=== PATIENT | female | born 1950 | race Caucasian/White ===

== ENCOUNTER 2020-09-15 09:08 | Inpatient (IN) | payer MEDICARE, OTHER ==
[~2020-09-15] VITALS: Ht 167.6 cm; Wt 68.0 kg
[~2020-09-15 09:08] MED LIST: Cleocin HCl300 MG PO; MECL25 PO
[2020-09-15] MEDS ORDERED: EUTHYROX50 MC1 PO (09:33)
[2020-09-15 09:54] LABS: Hematocrit 39.8 % (33.0-51.0); Hemoglobin 13.5 g/dL (11.5-16.0); Mean Corpuscular HGB 30.6 pg (26.0-34.0); Mean Corpuscular HGB Conc 33.9 g/dL (31.5-36.5); Mean Corpuscular Volume 90 fL (80-100); Mean Platelet Volume 9.3 fL (9.1-12.4); Platelet Count 302 K/mm3 (150-400); RDW Coefficient Variation 12.3 % (11.7-14.2); Red Blood Cell Count 4.41 M/mm3 (3.80-5.20); White Blood Cell Count 6.23 K/mm3 (4.00-11.30)
[2020-09-15 10:05] LABS: Alanine Aminotransfer (ALT/SGP 37 U/L (12-78); Albumin, Blood 2.8 g/dL (3.4-5.0); Albumin/Globulin Ratio 0.7 (0.8-1.8); Alk Phos 65 U/L (50-136); Anion Gap 8 mmol/L (6-16); Aspartate Aminotrans (AST/SGOT 54 U/L (12-37); Bilirubin, Total 0.6 mg/dL (0.1-1.0); Blood Urea Nitrogen 10 mg/dL (8-24); Bun/Creatinine Ratio 21.1 (12.0-20.0); CO2, Blood 24 mmol/L (21-32); Calcium, Blood 8.2 mg/dL (8.5-10.1); Chloride, Blood 101 mmol/L (98-108); Creatinine, Blood 0.47 mg/dL (0.40-1.00); Glomerular Filtration Rate >60 (60-); Glucose, Blood 110 mg/dL (70-99); Potassium, Blood 3.3 mmol/L (3.5-5.5); Sodium, Blood 133 mmol/L (136-145); Total Protein, Blood 6.8 g/dL (6.4-8.2)
[2020-09-15 10:12] LABS: BAND PERCENT MAN 4 % (0-8); BASOPHILS ABSOLUTE MAN 0.12 K/mm3 (0.00-0.23); BASOPHILS PERCENT MAN 2 % (0-2); EOSINOPHILS PERCENT MAN 0 % (0-6); LYMPHOCYTES ABSOLUTE MAN 1.18 K/mm3 (0.84-5.20); LYMPHOCYTES PERCENT MAN 19 % (21-46); MONOCYTES ABSOLUTE MAN 0.24 K/mm3 (0.16-1.47); MONOCYTES PERCENT MAN 4 % (4-13); NEUTROPHILS ABSOLUTE MAN 4.67 K/mm3 (1.96-9.15); SEG NEUTROPHILS PERCENT MAN 71 % (41-73); TOTAL CELLS COUNTED 100
--- NOTE | 2020-09-15 18:00 | NUR ---
ASSUMED CARE: PT ARRIVED FROM ED WITH 2L O2 IN PLACE. PT STATES SHE DOES NOT NORMALLY WEAR OXYGEN AT HOME BUT FEELS MUCH BETTER THAN SHE DID AT HOME DUE TO MEDS AND HYDRATION AND O2 THERAPY. ASSISTED TO BSC, SBA. CALL LIGHT IN REACH. NO FURTHER NEEDS AT THIS TIME.
--- NOTE | 2020-09-16 04:23 | NUR ---
PATIENT HAD NO COMPLAINTS OF DISCOMFORT OVERNIGHT. MAINTAINING 02 ON 2 LITERS NASAL CANNULA WITHOUT DIFFICULTY. WEAK NONPRODUCTIVE COUGH AFTER TAKING MEDS. TOLERATED FINAL LITER OF FLUID WITHOUT ANY PROBLEMS. VSS. STATES HER FEET ARE GETTING NUMB THIS MORNING, DID CHANGE POSITION, ADDED WARM BLANKETS TO FEET. STILL WARM TO THE TOUCH PRIOR TO INTERVENTIONS.
[2020-09-16 05:04] LABS: Hematocrit 36.5 % (33.0-51.0); Hemoglobin 11.9 g/dL (11.5-16.0); Mean Corpuscular HGB 30.1 pg (26.0-34.0); Mean Corpuscular HGB Conc 32.6 g/dL (31.5-36.5); Mean Corpuscular Volume 92 fL (80-100); Mean Platelet Volume 9.8 fL (9.1-12.4); Platelet Count 299 K/mm3 (150-400); RDW Coefficient Variation 12.3 % (11.7-14.2); RDW Standard Deviation 41.4 fL (35.1-46.3); Red Blood Cell Count 3.96 M/mm3 (3.80-5.20)
[2020-09-16 05:31] LABS: BAND PERCENT MAN 6 % (0-8); BASOPHILS PERCENT MAN 0 % (0-2); EOSINOPHILS PERCENT MAN 0 % (0-6); LYMPHOCYTES % ATYPICAL MANUAL 1 % (0-0); LYMPHOCYTES ABSOLUTE MAN 0.55 K/mm3 (0.84-5.20); LYMPHOCYTES PERCENT MAN 11 % (21-46); MONOCYTES ABSOLUTE MAN 0.41 K/mm3 (0.16-1.47); MONOCYTES PERCENT MAN 9 % (4-13); NEUTROPHILS ABSOLUTE MAN 3.63 K/mm3 (1.96-9.15); SEG NEUTROPHILS PERCENT MAN 73 % (41-73); TOTAL CELLS COUNTED 100
[2020-09-16 05:39] LABS: Anion Gap 6 mmol/L (6-16); Blood Urea Nitrogen 10 mg/dL (8-24); Bun/Creatinine Ratio 17.5 (12.0-20.0); CO2, Blood 24 mmol/L (21-32); Calcium, Blood 8.3 mg/dL (8.5-10.1); Chloride, Blood 108 mmol/L (98-108); Creatinine, Blood 0.57 mg/dL (0.40-1.00); Glomerular Filtration Rate >60 (60-); Glucose, Blood 136 mg/dL (70-99); Potassium, Blood 3.9 mmol/L (3.5-5.5); Sodium, Blood 138 mmol/L (136-145); Thyroxine (T4) 8.3 ug/dL (4.8-13.9)
--- NOTE | 2020-09-16 08:46 | NUR ---
ASSUMED CARE: PT REMAINS ON 2L O2. INDEPENDENT IN ROOM. GOT HERSELF UP TO BSC AND CHAIR. SPOKE WITH PT ABOUT IMPORTANCE OF CHANGING POSITION AND PRONING. PT AGREEABLE TO THIS. DR VALLE AT BEDSIDE AT THIS TIME.
--- NOTE | 2020-09-16 11:28 | NUR ---
PHYSICAL THERAPY IN ROOM DOING EVALUATION AT THIS TIME.
--- NOTE | 2020-09-16 18:54 | NUR ---
SHIFT SUMMARY: PT INDEPENDENT IN ROOM ON 2L. PLAN IS TO REMAIN IN HOSPITAL TO FINISH REMDESIVIR. NO FURTHER NEEDS OR CONCERNS AT THIS TIME. PLEASANT AND COOPERATIVE. REPOSITIONS SELF IN ROOM INDEPENDENTLY
--- NOTE | 2020-09-17 07:32 | NUR ---
slept well. no changes except having an increase in dry cough. Yeni still feeling like she is only able to take in a (half breath). Does state much better than yesterday
--- NOTE | 2020-09-17 11:00 | NUR ---
DR HUFF CAME TO SEE PT AND WANTED TO SEE HOW PT DID ON RA. REMOVED O2 AND HAD PT SIT IN CHAIR THEN STAND UP AND WALK AROUND ROOM. PT MARCHED IN PLACE FOR SEVERAL MINUTES WELL. PT'S INCREASE IN WORK OF BREATHING WAS AUDIBLE. BIOX IN PLACE ENTIRE TIME AND PT WAS NOTED TO DROP TO 91%. HR INCREASED TO 119. CALL TO DR HUFF WHO STATES TO CONTINUE TO MONITOR ON RA BUT WILL KEEP PT IN HOSPITAL FURTHER DUE TO TACHYCARDIA. PT DENIES FURTHER NEEDS OR CONCERNS AT THIS TIME.
--- NOTE | 2020-09-17 17:18 | NUR ---
SHIFT SUMMARY: PT CURRENTLY ON RA. TRIALED ON ROOM AIR AND DID NOT DESAT BELOW 91% BUT BECAME TACHYCARDIC. DR STATES POSSIBLE DC TOMORROW IF REMAINS STABLE SO NOT TO HAZEL DISCHARGE.
--- NOTE | 2020-09-18 06:00 | NUR ---
CHEMICAL HANDLER SUMMARY PT A/O X4, INDEPENDENT IN ROOM. DENIES PAIN, NAUSEA, SOB. ROOM AIR SATTING AVERAGING IN AT 95% VITALS ARE STABLE. PT IS PLEASANT AND COOPERATIVE. AT BEGINNING OF NOC SHIFT PT STATED SHE FELT ANXIOUS DUE TO HAVING TO STAY ANOTHER NIGHT AT THE HOSPITAL. THIS MORNING PT EXPRESSED TO ME SHE FEELS MUCH BETTER CAN IS ABLE TO "TAKE A DEEPER YAWN". CALL LIGHT WITHIN REACH, WILL CONTINUE TO MONITOR.
[2020-09-18 08:33] LABS: Anion Gap 3 mmol/L (6-16); Blood Urea Nitrogen 11 mg/dL (8-24); Bun/Creatinine Ratio 17.2 (12.0-20.0); CO2, Blood 32 mmol/L (21-32); Calcium, Blood 8.3 mg/dL (8.5-10.1); Chloride, Blood 103 mmol/L (98-108); Creatinine, Blood 0.64 mg/dL (0.40-1.00); Glomerular Filtration Rate >60 (60-); Glucose, Blood 77 mg/dL (70-99); Potassium, Blood 2.9 mmol/L (3.5-5.5); Sodium, Blood 138 mmol/L (136-145)
[2020-09-18] MEDS ORDERED: GUAI600T33 PO (11:33)
[2020-09-18] MEDS ORDERED: Vitamin D2000 UNIT PO (11:33)
--- NOTE | 2020-09-18 15:39 | NUR ---
PATIENT DISCHARGE: PATIENT DISCHARGED TO HOME THIS SHIFT. MEDICATION RECONCILIATION COMPLETED; MED LIST FAXED TO [facility]. DISCHARGE EDUCATION COMPLETED WITH PATIENT. PATIENT TRANSPORTED TO EXIT BY [facility] STAFF WITH WHEELCHAIR AT 1540. PATIENT DEPARTED [facility] VIA PRIVATE AUTO.
== END 2020-09-18 15:38 | disposition home or self-care (01) | DRG 177 ==
LOC: ER 09:08 → ERHOLD 14:19 → MEDS 18:08
PROVIDERS: Internal Medicine; Student in an Organized Health Care Education/Training Program; ADMIT Internal Medicine
PROC: 8E0ZXY6 Isolation (ICD-10-PCS; principal; 2020-09-15)
PROC: 3E0333Z Introduction of Anti-inflammatory into Peripheral Vein, Percutaneous Approach (ICD-10-PCS; 2020-09-15)
PROC: XW033E5 Introduction of Remdesivir Anti-infective into Peripheral Vein, Percutaneous Approach, New Technology Group 5 (ICD-10-PCS; 2020-09-16)
DX: U07.1 COVID-19 (principal); J12.82 Pneumonia due to coronavirus disease 2019; J96.01 Acute respiratory failure with hypoxia; E86.0 Dehydration; E87.6 Hypokalemia; R54 Age-related physical debility; R29.6 Repeated falls; E03.9 Hypothyroidism, unspecified; Z74.09 Other reduced mobility; Z60.2 Problems related to living alone; Z79.899 Other long term (current) drug therapy; Z88.5 Allergy status to narcotic agent; Z91.013 Allergy to seafood; Z87.891 Personal history of nicotine dependence
CPT/HCPCS: 36415; 71045; 80048; 80053; 83605; 84145; 84436; 85025; 93005; 93010; 94760; 96365; 96375; 97110; 97116; 97161; 97530; 99285-25; A9270; J0696; J1100; J1650; J1885; J1940; J7030; J7050; J7120

== ENCOUNTER → 2021-10-18 | Outpatient (CLI) | payer OTHER ==
[~2021-10-18] MED LIST changes: +EUTHYROX50 MC1 PO; +GUAI600T33 PO; +Vitamin D2000 UNIT PO
[2021-10-18 14:44] LABS: Source, Urine Clean Catch
[2021-10-18 15:33] LABS: Bacteria Not Seen /hpf; Calcium Oxalate Crystals Few /hpf; Red Blood Cells, Urine Not Seen /hpf (0-2); Squamous Epithelial Cells Mod /hpf (Few); White Blood Cells, Urine 0-2 /hpf (0-5)
== END | disposition home or self-care (01) ==
LOC: LAB SHORT 14:42 → LAB 14:42
PROVIDERS: General Practice
DX: R82.90 Unspecified abnormal findings in urine (principal)
CPT/HCPCS: 81015; 87086

== ENCOUNTER → 2022-12-16 | Outpatient (CLI) | payer OTHER ==
[2022-12-22 12:07] LABS: HPV 16 Negative (Negative); HPV 18 Negative (Negative); HPV OTHER HR TYPES Negative (Negative)
== END ==
LOC: LAB 11:28 → LAB SHORT 11:28
PROVIDERS: Family Medicine
DX: N81.9 Female genital prolapse, unspecified (principal)
CPT/HCPCS: 87624; 88175